=== PATIENT | male | born 1955 | race Caucasian/White ===

== ENCOUNTER → 2016-11-10 | Outpatient (CLI) | payer BC | LOC: KOH-I 11:45 | DX: J20.9 Acute bronchitis, unspecified (principal); R06.02 Shortness of breath | CPT/HCPCS: 71020 ==

== ENCOUNTER 2020-12-05 05:50 | Inpatient (IN) | payer MEDICARE, OTHER ==
[~2020-12-05] VITALS: Ht 170.2 cm; Wt 138.8 kg
[~2020-12-05 05:50] MED LIST: ATORVASTATIN CA10 MG PO; BUMETANIDE1 MG PO; CARVEDILOL6.25 MG PO; FUROSEMIDE20 MG PO; NOVOLIN N100 UNIT/1 SQ; NOVOLIN R100 UNIT/1 INJ; POTASSIUM CHLO20 ME2 PO; QUINAPRIL HCL10 MG PO; SERTRALINE HCL50 MG PO; TAMSULOSIN HCL0.4 MG PO
[2020-12-05 06:15] LABS: HEMOGLOBIN 15.9 gm/dl (14.0-17.5); RED BLOOD COUNT 5.49 M/UL (4.20-5.50); WHITE BLOOD COUNT 10.8 K/UL (4.5-11.0)
[2020-12-05 06:32] LABS: BUN/CREATININE RATIO 22 (0-10)
[2020-12-05] MEDS ORDERED: ONE DAILY MULT1 EAC1 PO (10:08)
[2020-12-06 06:05] LABS: WHITE BLOOD COUNT 11.7 K/UL (4.5-11.0)
[2020-12-06 06:08] LABS: HEMOGLOBIN 12.9 gm/dl (14.0-17.5); RED BLOOD COUNT 4.55 M/UL (4.20-5.50)
[2020-12-06 06:27] LABS: BUN/CREATININE RATIO 19 (0-10)
[2020-12-06] MEDS ORDERED: ZITHROMAX250 MG PO (09:15)
[2020-12-06] MEDS ORDERED: OMNICEF 300 MG300 MG PO (09:15)
== END 2020-12-06 12:30 | disposition home or self-care (01) | DRG 637 ==
LOC: ER1 05:50 → CDU 08:33 → PROG CARE 12:59
PROVIDERS: Family Medicine; ADMIT Internal Medicine
DX: E11.649 Type 2 diabetes mellitus with hypoglycemia without coma (principal); J18.9 Pneumonia, unspecified organism; I13.0 Hypertensive heart and chronic kidney disease with heart failure and stage 1 through stage 4 chronic kidney disease, or unspecified chronic kidney disease; I50.42 Chronic combined systolic (congestive) and diastolic (congestive) heart failure; C64.9 Malignant neoplasm of unspecified kidney, except renal pelvis; C78.00 Secondary malignant neoplasm of unspecified lung; E11.22 Type 2 diabetes mellitus with diabetic chronic kidney disease; Z20.822 Contact with and (suspected) exposure to COVID-19; N18.30 Chronic kidney disease, stage 3 unspecified; E03.9 Hypothyroidism, unspecified; G47.33 Obstructive sleep apnea (adult) (pediatric); I95.9 Hypotension, unspecified; I25.10 Atherosclerotic heart disease of native coronary artery without angina pectoris; E78.00 Pure hypercholesterolemia, unspecified; I35.0 Nonrheumatic aortic (valve) stenosis; Z79.4 Long term (current) use of insulin; Z79.899 Other long term (current) drug therapy; Z85.118 Personal history of other malignant neoplasm of bronchus and lung; Z85.528 Personal history of other malignant neoplasm of kidney; Z80.0 Family history of malignant neoplasm of digestive organs; Z82.49 Family history of ischemic heart disease and other diseases of the circulatory system; Z99.81 Dependence on supplemental oxygen
CPT/HCPCS: 0240U; 36415; 71045; 80048; 80053; 81001; 82550; 82553; 82962; 83605; 83874; 84484; 85025; 85610; 87040; 93005; 96374; 99285; G0378; J0360; J0456; J0696; J1940; J2405; J7030

== ENCOUNTER → 2021-08-02 | Outpatient (CLI) | payer MEDICARE, OTHER ==
[~2021-08-02] MED LIST changes: +OMNICEF 300 MG300 MG PO; +ONE DAILY MULT1 EAC1 PO; +ZITHROMAX250 MG PO
== END ==
LOC: EROP 11:03
DX: U07.1 COVID-19 (principal); Z23 Encounter for immunization; E11.9 Type 2 diabetes mellitus without complications; Z85.118 Personal history of other malignant neoplasm of bronchus and lung; I10 Essential (primary) hypertension; Z90.2 Acquired absence of lung [part of]
CPT/HCPCS: M0247; Q0247